=== PATIENT | female | born 1965 | race Caucasian/White ===

== ENCOUNTER 2023-02-21 16:51 | Outpatient (REF) | payer OTHER, SELFPAY ==
[2023-02-21 20:50] LABS: HCT 36.3 % (36.0-46.0); HGB 12.3 g/dL (11.2-15.7); MCH 30.3 pg (27.0-33.0); MCHC 33.9 % (32.0-36.0); MCV 89 fL (80-95); MPV 11.8 fL (8.0-11.0); Platelet Count 208 10^3/uL (130-400); RBC 4.06 10^6/uL (3.93-5.22); RDW 12.2 % (11.7-14.6); RDW-SD 39.8 fL; WBC 6.94 10^3/uL (4.4-10.8)
[2023-02-21 21:07] LABS: ALT 26 U/L (14-59); AST 16 U/L (15-37); Albumin 3.7 g/dL (3.4-5.0); Alkaline Phosphatase 95 U/L (46-116); Anion Gap 11.1 mmol/L (3-11); BUN 14 mg/dL (7-18); Bilirubin, Total 0.2 mg/dL (0.2-1.0); CO2 27.9 mmol/L (21.0-32.0); CREATININE 0.8 mg/dL (0.55-1.02); Calcium 8.7 mg/dL (8.5-10.1); Calculated LDL 115 mg/dL (<100); Chloride 105 mmol/L (98-107); Cholesterol 216 mg/dL (<200); Estimated GFR 84.82 (mL/min/1.73m2); Glucose 114 mg/dL (74-106); HDL Cholesterol 74 mg/dL (40-60); Potassium 3.6 mmol/L (3.5-5.1); Sodium 144 mmol/L (136-145); Total Protein 6.9 g/dL (6.4-8.2); Triglyceride 137 mg/dL (<150)
== END 2023-02-21 16:52 | disposition home or self-care (01) ==
LOC: NCHCN 16:51
PROVIDERS: Visit Provider Family Medicine
DX: D72.819 Decreased white blood cell count, unspecified (principal); E78.5 Hyperlipidemia, unspecified; I10 Essential (primary) hypertension
CPT/HCPCS: 80053; 80061; 85027

== ENCOUNTER 2023-03-17 10:07 | Outpatient (REF) | payer OTHER, SELFPAY ==
--- NOTE | 2023-03-17 09:45 | PAPFT_PTH ---
PATIENT: Sherry Braov LOC: [facility]N #:[id number] AGE/SX: 57/F ROOM: RE03/17/[address]: Nikky Wild : 1965 BED: DIS: 03/17/2023 SPEC #: [id number] RECD: 03/17/23 17:40 STATUS: KAUSHAL DIANA #: [id number] OLIVIA: 03/17/23 09:[address]: Nikky Wild DEPT: [facility] Cytology RECD BY: Sherry Mcnally Tissues: 1 - CX/ENDOCX FOR PAP SMEARS Procedures: PAP THIN PREP/UVM Screening HPV DNA PROBE Comments: [id number] (HPV 16 & 18/45)
== END 2023-03-17 10:08 | disposition home or self-care (01) ==
LOC: NCHCN 10:07
PROVIDERS: PCP Family Medicine; Visit Provider Family Medicine
DX: Z12.4 Encounter for screening for malignant neoplasm of cervix (principal); R87.610 Atypical squamous cells of undetermined significance on cytologic smear of cervix (ASC-US); Z11.51 Encounter for screening for human papillomavirus (HPV); R87.810 Cervical high risk human papillomavirus (HPV) DNA test positive
CPT/HCPCS: 88142; 87624

== ENCOUNTER 2023-03-24 02:28 | Outpatient (CLI) | payer OTHER, SELFPAY ==
--- NOTE | 2023-03-24 | DI.MAMMO_ITS ---
Exam(s) MAMMO SCREENING EXAM: MAMMO SCREENING CLINICAL HISTORY: SCREENING, Z12.39. TECHNIQUE: Bilateral full field digital CC and MLO mammographic images were obtained with 3D tomosyn thesis and utilizing computer aided detection (CAD). COMPARISON: Prior outside mammogram and ultrasound October 2019 reviewed were reviewed. FINDINGS: The previously described nodular density in the left breast which was shown to be a cyst on prior ult rasound examination is no longer seen on the present mammogram. There are no CAD designations. There are no new spiculated masses nor malignant appearing microcalcification groups. There is no significant architectural distortion nor skin thickening-retraction. IMPRESSION: No radiographic evidence of malignancy. BI-RADS Category 1 - Negative Breast Density - Category B - Scattered areas of fibroglandular density Breast density Category C or D implies that the patient has dense breast tissue. Dense breast tissue can make it harder to find cancer on a mammogram. Dense breast tissue is also associated with an incr eased risk of breast cancer. This information about the result of the mammogram report was provided to the patient to raise their awareness. Use this report when you speak with the patient about their risks for breast cancer, which includes their family history. At that time, you may recommend additional screening tests (Ultrasoun d or MRI) as these tests may add significant information. A negative radiographic report should not delay biopsy if a dominant or clinically suspicious mass is present. Up to ten percent of cancers are not identified on mammography. A negative report may reinforce clinical impression. Adenosis and dense breasts may obscure an underlying neoplasm. False positive reports average 6 to 10%. Patient will receive a letter notifying them of these results.
== END 2023-03-24 02:48 ==
LOC: DI 02:29
PROVIDERS: PCP Family Medicine; Visit Provider Family Medicine
DX: Z12.31 Encounter for screening mammogram for malignant neoplasm of breast (principal)
CPT/HCPCS: 77063; 77067

== ENCOUNTER 2023-05-05 03:09 | Outpatient (CLI) | payer OTHER, SELFPAY ==
--- NOTE | 2023-05-05 | DI.CT_ITS ---
Exam(s) CT ABDOMEN PELVIS W EXAM: CT ABDOMEN PELVIS W CLINICAL HISTORY: ABDOMINAL DISTENSION R14.0 EARLY SATIETY R68.81 TECHNIQUE: Imaging Protocol: Axial computed tomography images with coronal and sagittal reformatted images were created and reviewed CONTRAST MATERIAL: Intravenous: Omnipaque 350 Contrast volume:100 mL Oral: Yes COMPARISON: US US BREAST LIMITED LEFT from 11/11/2019 FINDINGS: ABDOMEN: Lung Bases: There is a small hiatal hernia. There couple noncalcified pulmonary nodules present. Th e largest is in the periphery of the right lower lobe measures 4 mm. Liver: Normal density. There is a 9 mm simple cyst in the posterior segment of the right lobe of the liver. No suspicious hepatic masses are seen. Portal, Superior Mesenteric, and Splenic Veins: Unremarkable. Gallbladder and Biliary Tract: No radiodense calculus or dilation. Pancreas: Normal density, no abnormal calcifications or inflammatory process. Spleen: Normal. Adrenals: No masses seen. Kidneys: Normal size, contour and axis. No radiodense stones or obstructive uropathy. No masses seen. Abdominal Aorta: Abdominal portion non-dilated. Atherosclerosis is present. Bowel: There is stool throughout the colon suggesting constipation. No evidence of bowel wall thicke yassine or obstruction. Appendix is unremarkable. Peritoneal Cavity: No ascites, collection or mesenteric inflammatory response. No free air. Lymph Nodes: Within normal limits. Bones: Within normal limits for the patient's age. Soft Tissues: There is a small fat containing umbilical hernia. PELVIS: Bladder: Symmetric distention, no gross wall thickening. Reproductive Organs: There is a 10.9 transverse by 11.1 AP by 9.3 cm craniocaudad cystic mass in the central pelvis. It appears to arise from the left ovary. There are thin septations internally. The right ovary is visualized and is unremarkable. The uterus is grossly unremarkable. Lymph Nodes: Within normal limits. Bones: Within normal limits for the patient's age. IMPRESSION: 1. 10.9 x 11.1 x 9.3 cm cystic mass in the pelvis which appears to arise from the left ovary. Neopla sm cannot be excluded. Gynecologic consult is recommended for further evaluation. 2. A few small non calcified pulmonary nodules. CT scan of the chest is recommended for further eval uation. 3. Findings were discussed with Nikky Wild at 9:50 a.m. on 05/05/2023. RADIATION DOSE DELIVERED: Total DLP DATA REPOSITORY: All CT scans at this facility are submitted to the National Radiology Data Registry (NRDR) Dose Index Registry (DIR) with the [employer] (A[employer]). RADIATION OPTIMIZATION: All CT scans at this facility use at least one of these dose optimization te chniques: automated exposure control; mA and/or kV adjustment per patient size (includes targeted exa ms where dose is matched to clinical indication); or iterative reconstruction.
[2023-05-05] MEDS: Barium Sulfate 2% W/V-Berry Smoothie 450 ML BTL PO ×2 (07:32)
[2023-05-05] MEDS: Omnipaque 350 MG/ML 500 ML BTL-Imaging package 100 ML IJ (09:27)
[2023-05-05] MEDS: Normal Saline - Diluent 50 ML VIAL IJ (09:28)
[2023-05-05] MEDS: Normal Saline Flush 10 ML SYR IVP (09:28)
== END 2023-05-05 03:29 ==
LOC: DI 03:09
PROVIDERS: PCP Family Medicine; Visit Provider Family Medicine
DX: R68.81 Early satiety; R19.07 Generalized intra-abdominal and pelvic swelling, mass and lump
CPT/HCPCS: 74177

== ENCOUNTER 2023-06-18 15:48 | Outpatient (REF) | payer OTHER, SELFPAY ==
[2023-06-18 17:22] LABS: Anion Gap 7.2 mmol/L (3-11); BUN 17 mg/dL (7-18); CO2 27.8 mmol/L (21.0-32.0); CREATININE 0.8 mg/dL (0.55-1.02); Calcium 9.4 mg/dL (8.5-10.1); Chloride 102 mmol/L (98-107); Estimated GFR 84.82 (mL/min/1.73m2); Glucose 109 mg/dL (74-106); Potassium 3.5 mmol/L (3.5-5.1); Sodium 137 mmol/L (136-145)
== END 2023-06-18 15:49 | disposition home or self-care (01) ==
LOC: NCHCN 15:48
PROVIDERS: PCP Family Medicine; Visit Provider Family Medicine
DX: I10 Essential (primary) hypertension (principal)
CPT/HCPCS: 80048

== ENCOUNTER 2024-04-19 13:19 | Outpatient (REF) | payer BC, SELFPAY ==
[2024-04-19 18:58] LABS: Anion Gap 5.9 mmol/L (3-11); BUN 15 mg/dL (7-18); CO2 31.1 mmol/L (21.0-32.0); CREATININE 0.9 mg/dL (0.55-1.02); Calcium 9.5 mg/dL (8.5-10.1); Calculated LDL 143 mg/dL (<100); Chloride 105 mmol/L (98-107); Cholesterol 247 mg/dL (<200); Estimated GFR 73.19 (mL/min/1.73m2); Glucose 96 mg/dL (74-106); HDL Cholesterol 69 mg/dL (40-60); Potassium 4.2 mmol/L (3.5-5.1); Sodium 142 mmol/L (136-145); Triglyceride 175 mg/dL (<150)
== END 2024-04-19 13:20 | disposition home or self-care (01) ==
LOC: NCHCN 13:19
PROVIDERS: PCP Family Medicine; Visit Provider Family Medicine
DX: I10 Essential (primary) hypertension (principal)
CPT/HCPCS: 80048; 80061

== ENCOUNTER 2024-04-29 13:47 | Outpatient (REF) | payer BC, SELFPAY ==
[2024-04-29 18:39] LABS: Bacteria Negative HPF (Negative); C & S Indicated? C&S Done As Ordered; Casts Negative LPF (Negative); Crystals Negative HPF (Negative); Epithelial Cells Few HPF (Negative); Mucus Negative (Negative); WBC Negative HPF (0-5)
== END 2024-04-29 13:48 | disposition home or self-care (01) ==
LOC: LBN 13:47
PROVIDERS: PCP Family Medicine; Visit Provider Physician Assistant Medical
DX: N89.8 Other specified noninflammatory disorders of vagina (principal); R30.0 Dysuria
CPT/HCPCS: 81015; 87086; 87480; 87510; 87660

== ENCOUNTER 2024-06-10 17:09 | Outpatient (REF) | payer BC, SELFPAY ==
--- NOTE | 2024-06-10 13:30 | PAPFT_PTH ---
PATIENT: Sherry Bravo [id number] AGE/SX: 58/F ROOM: RE06/10/[address]: Nikky Wild : 1965 BED: DIS: 06/10/2024 SPEC #: [id number] RECD: 06/11/24 13:25 STATUS: KAUSHAL REDeyanira #: [id number] OLIVIA: 06/10/24 13:[address]: Nikky Wild DEPT: [facility] Cytology RECD BY: Sherry Mcnally Tissues: 1 - CX/ENDOCX FOR PAP SMEARS Procedures: PAP THIN PREP/UVM Screening HPV DNA PROBE Comments: [id number] (HPV 16 & 18/45)
== END 2024-06-10 17:10 | disposition home or self-care (01) ==
LOC: NCHCN 17:09
PROVIDERS: PCP Family Medicine; Visit Provider Family Medicine
DX: Z11.51 Encounter for screening for human papillomavirus (HPV) (principal); Z01.419 Encounter for gynecological examination (general) (routine) without abnormal findings
CPT/HCPCS: 88142; 87624

== ENCOUNTER 2024-06-28 03:27 | Outpatient (CLI) | payer BC, SELFPAY ==
--- NOTE | 2024-06-28 | DI.MAMMO_ITS ---
Exam(s) MAMMO SCREENING EXAM: MAMMO SCREENING CLINICAL HISTORY: SCREENING, Z12.31. TECHNIQUE: Bilateral full field digital CC and MLO mammographic images were obtained with 3D tomosyn thesis and utilizing computer aided detection (CAD). COMPARISON: Prior mammograms were reviewed. Prior ultrasound October 2019 also reviewed. FINDINGS: There has been no significant change in the appearance and distribution of the fibroglandular tissue. There are no new findings in the immediate vicinity of the biopsy marker device in the right breast. There are no new spiculated masses nor malignant appearing microcalcification groups. There is no significant architectural distortion nor skin thickening-retraction. IMPRESSION: No radiographic evidence of malignancy. BI-RADS Category 1 - Negative Breast Density - Category B - Scattered areas of fibroglandular density Breast density Category C or D implies that the patient has dense breast tissue. Dense breast tissue can make it harder to find cancer on a mammogram. Dense breast tissue is also associated with an incr eased risk of breast cancer. This information about the result of the mammogram report was provided to the patient to raise their awareness. Use this report when you speak with the patient about their risks for breast cancer, which includes their family history. At that time, you may recommend additional screening tests (Ultrasoun d or MRI) as these tests may add significant information. A negative radiographic report should not delay biopsy if a dominant or clinically suspicious mass is present. Up to ten percent of cancers are not identified on mammography. A negative report may reinforce clinical impression. Adenosis and dense breasts may obscure an underlying neoplasm. False positive reports average 6 to 10%. Patient will receive a letter notifying them of these results.
== END 2024-06-28 03:47 ==
LOC: DI 03:27
PROVIDERS: PCP Family Medicine; Visit Provider Family Medicine
DX: Z12.31 Encounter for screening mammogram for malignant neoplasm of breast (principal)
CPT/HCPCS: 77063; 77067

== ENCOUNTER 2024-07-19 14:22 | Outpatient (REF) | payer BC, SELFPAY ==
--- NOTE | 2024-07-19 14:10 | ENDO_PTH ---
PATIENT: Sherry Bravo LOC: [facility] U#:[id number] AGE/SX: 58/F ROOM: RE07/19/[address]: Magui Royal DO : 1965 BED: DIS: 07/19/2024 SPEC #: [id number] RECD: 07/19/24 16:54 STATUS: SOUDasha REQ #: [id number] OLIVIA: 07/19/24 14:[address]: Magui Royal DEPT: Surgical Specimen RECD BY: Sherry Mcnally ENTERED: 07/19/24 16:54 SP TYPE: Endo OTHR DR: Nikky Wild Tissues: 1 - ENDOCERVICAL BX/CURRETTE 2 - CERVICAL BIOPSY Procedures: GROSS AND MICRO LEVEL 4 IMMUNOPEROXIDASE STAIN Comments: [id number]
== END 2024-07-19 14:23 | disposition home or self-care (01) ==
LOC: LBN 14:22
PROVIDERS: PCP Family Medicine; Visit Provider Obstetrics & Gynecology
DX: R87.613 High grade squamous intraepithelial lesion on cytologic smear of cervix (HGSIL) (principal); R87.811 Vaginal high risk human papillomavirus (HPV) DNA test positive
CPT/HCPCS: 88305; 88361

== ENCOUNTER 2024-08-27 14:17 | Outpatient (REF) | payer BC, SELFPAY ==
--- NOTE | 2024-08-27 13:50 | CER_PTH ---
PATIENT: Sherry Bravo LOC: [facility] U#:[id number] AGE/SX: 58/F ROOM: RE08/27/[address]: Magui Royal DO : 1965 BED: DIS: 08/27/2024 SPEC #: [id number] RECD: 08/27/24 18:03 STATUS: KAUSHAL REQ #: [id number] OLIVIA: 08/27/24 13:[address]: Magui Royal DEPT: Surgical Specimen RECD BY: Sherry Mcnally ENTERED: 08/27/24 18:04 SP TYPE: CER OTHR DR: Nikky Wild Tissues: 1 - CERVICAL CONE BX Procedures: GROSS AND MICRO LEVEL 5 Comments: [id number]
== END 2024-08-27 14:18 | disposition home or self-care (01) ==
LOC: LBN 14:17
PROVIDERS: PCP Family Medicine; Visit Provider Obstetrics & Gynecology
DX: R87.611 Atypical squamous cells cannot exclude high grade squamous intraepithelial lesion on cytologic smear of cervix (ASC-H) (principal)
CPT/HCPCS: 88307

== ENCOUNTER 2025-04-13 11:39 | Outpatient (REF) | payer SELFPAY ==
--- NOTE | 2025-04-13 11:30 | PAPFT_PTH ---
PATIENT: Sherry Bravo LOC: [facility] U#:[id number] AGE/SX: 59/F ROOM: RE04/13/[address]: Irena Dillon MD : 1965 BED: DIS: 04/13/2025 SPEC #: [id number] RECD: 04/13/25 13:16 STATUS: KAUSHAL REQ #: [id number] OLIVIA: 04/13/25 11:[address]: Irena Dillon DEPT: [facility] Cytology RECD BY: Sherry Mcnally ENTERED: 04/13/25 13:17 SP TYPE: PAPFT OTHR DR: Nikky Wild Tissues: 1 - CX/ENDOCX FOR PAP SMEARS Procedures: PAP THIN PREP/UVM Screening HPV DNA PROBE Comments: [id number] (HPV 16 & 18/45)
== END 2025-04-13 11:40 | disposition home or self-care (01) ==
LOC: LBN 11:39
PROVIDERS: PCP Family Medicine; Visit Provider Obstetrics & Gynecology
DX: Z12.4 Encounter for screening for malignant neoplasm of cervix (principal)
CPT/HCPCS: 88142; 87624